=== PATIENT | female | born 1985 | race Caucasian/White ===

== ENCOUNTER 2020-01-27 07:30 | Emergency (ER) | payer OTHER ==
[~2020-01-27] VITALS: Ht 162.6 cm; Wt 90.7 kg
[~2020-01-27 07:30] MED LIST: AMITRIPTYLINE H10 M1 PO; AUGMENTIN 875875 MG PO; AZITHROMYCIN 2250 MG PO; ELMIRON; ESTRACE1 MG PO; FLEXERIL PO; IBUPROFEN 800800 M1 PO; MEDROLDOSEPACK PO; NOHOMEMEDICATIONS; OXYCODON-ACETA1 EAC1 PO; OXYCONTIN; PEPCID40 MG PO; PERCOCET; PHENERGAN 25 MG25 M1 PO; TUSSIONEX PENN473 ML PO; ZOFRAN ODT4 MG PO
[2020-01-27 07:54] LABS: URINE BLOOD 2+ (Negative); URINE CLARITY CLEAR; URINE COLOR YELLOW; URINE GLUCOSE-RANDOM 1+ (Negative); URINE KETONES NEGATIVE (Negative); URINE LEUKOCYTES-REFLEX NEGATIVE (Negative); URINE PROTEIN 1+ (Negative); URINE SPECIFIC GRAVITY >= 1.030 (1.005-1.030)
[2020-01-27 07:58] LABS: URINE BILIRUBIN 1+ (Negative); URINE NITRITE-REFLEX POSITIVE (Negative)
[2020-01-27 07:59] LABS: ICTOTEST (BILI CONFIRMATORY) Positive (Negative)
[2020-01-27 08:01] LABS: SQUAMOUS 0-3 Few /LPF (0-3)
[2020-01-27 08:01] LABS: ABSOLUTE EOSINOPHILS 0.5 thou/uL (0.0-0.7); ABSOLUTE LYMPHOCYTES 4.6 thou/uL (0.8-5.3); ABSOLUTE MONOCYTES 0.7 thou/uL (0.0-1.2); ABSOLUTE NEUTROPHILS 10.4 thou/uL (1.6-8.1); BASOPHILS 0.2 %; HEMOGLOBIN 15.6 gm/dL (12.0-15.0); LYMPHOCYTES 28.4 %; MCH 32.1 pg (26.0-34.0); MCHC 35.4 g/dL (28.0-37.0); MCV 90.8 fL (80.0-100.0); MONOCYTES 4.6 %; MPV 8.2 fl. (7.2-11.1); NUCLEATED RBCS 0 /100WBC; PLATELET COUNT* 244 thou/uL (150-400); POLYS 63.8 %; RBC 4.84 mil/uL (4.20-5.00); RDW-CV 12.5 % (10.5-14.5); WBC 16.2 thou/uL (4.0-11.0)
[2020-01-27 08:02] LABS: BACTERIA-REFLEX 1-9 Few /HPF (None Seen); CASTS None Seen /LPF (None Seen); CRYSTALS None Seen /LPF (None Seen); URINE RBC 0-2 Rare /HPF (0-2); URINE WBC-REFLEX 6-15 Few /HPF (0-5)
[2020-01-27 08:16] LABS: CALCIUM 8.2 mg/dL (8.5-10.1); CREATININE 0.8 mg/dL (0.6-1.3); POTASSIUM 4.1 mmol/L (3.5-5.1)
[2020-01-27 08:21] LABS: ALBUMIN 3.8 g/dL (3.4-5.0); TOTAL BILIRUBIN 0.4 mg/dL (<0.1-1.0); TOTAL PROTEIN 8.1 g/dL (6.4-8.2)
[2020-01-27] MEDS ORDERED: DIAZEPAM 5 MG5 MG PO (10:54)
[2020-01-27] MEDS ORDERED: PERCOCET 5-3251 EACH PO (10:54)
[2020-01-27] MEDS ORDERED: MACROBID 100 M100 M1 PO (10:54)
[2020-01-27] MEDS ORDERED: TORADOL 10 MG T10 MG PO (10:54)
[2020-01-27 11:07] VITALS: BP 131/87
== END 2020-01-27 11:08 | disposition home or self-care (01) ==
LOC: M.ERS 07:30
PROVIDERS: Personal Emergency Response Attendant
DX: N30.10 Interstitial cystitis (chronic) without hematuria (principal); N20.1 Calculus of ureter; F17.210 Nicotine dependence, cigarettes, uncomplicated; Z90.49 Acquired absence of other specified parts of digestive tract; Z90.710 Acquired absence of both cervix and uterus

== ENCOUNTER → 2020-11-24 | Outpatient (CLI) | payer OTHER ==
[~2020-11-24] MED LIST changes: +DIAZEPAM 5 MG5 MG PO; +KAPSPARGO SPRIN25 MG; +LIPITOR 20 MG T20 M1 PO; +MACROBID 100 M100 M1 PO; +METFORMIN HCL500 M3 PO; +MINIVELLE1 EAC1; +PERCOCET 5-3251 EACH PO; +TORADOL 10 MG T10 MG PO; +VITAMIN D250 MC1
== END ==
LOC: M.PC 08:49
PROVIDERS: ATTEND Physical Medicine & Rehabilitation
DX: M54.5 Low back pain (principal); M79.18 Myalgia, other site; M25.552 Pain in left hip; I10 Essential (primary) hypertension; E11.9 Type 2 diabetes mellitus without complications; Z68.34 Body mass index [BMI] 34.0-34.9, adult; Z79.899 Other long term (current) drug therapy